=== PATIENT | female | born 1955 | race Caucasian/White ===

== ENCOUNTER 2019-09-26 12:23 | Emergency (ER) | payer MEDICARE, OTHER ==
--- NOTE | 2019-09-26 14:13 | ER Document Report ---
ED Medical Screen (RME) - General Chief Complaint: Back Pain Stated Complaint: BACK PAIN Time Seen by Provider: 09/26/19 14:08 Mode of Arrival: Wheelchair Information source: Patient Notes: 64-year-old female presents to ED for right flank pain intermittently for 3 weeks worse for the last 3 days. She states she does have a history of kidney stones many years ago. She states 2 weeks ago when she went to the primary care doctor there was some blood in her urine and they started to treat her for a UTI and then stopped the antibiotics because there was no bacteria in the urine. She states the pain is been coming and going since then but now it stops staying and the pain is much worse. Patient is alert oriented respirations regular nonlabored speaking in full sentences. I have greeted and performed a rapid initial assessment of this patient. A comprehensive ED assessment and evaluation of the patient, analysis of test results and completion of medical decision making process will be conducted by an additional ED providers. - Related Data Allergies/Adverse Reactions: codeine Allergy (Verified 09/26/19 14:04) sodium pentathol Allergy (Uncoded 09/26/19 14:04) Past Medical History - Social History Cigarette use (# per day): No Frequency of alcohol use: None Drug Abuse: None Lives with: Family Family history: Reviewed & Not Pertinent - Past Medical History Cardiac Medical History: Reports: Hx DVT, Hx Heart Attack, Hx Hypercholesterolemia, Hx Hypertension Pulmonary Medical History: Reports: None EENT Medical History: Reports: None Neurological Medical History: Reports: None Endocrine Medical History: Reports: Hx Diabetes Mellitus Type 2 Renal/ Medical History: Reports: Hx Kidney Stones Musculoskeltal Medical History: Reports Hx Arthritis, Reports Hx Musculoskeletal Deformity, Reports Hx Musculoskeletal Trauma Past Surgical History: Reports: Hx Breast Surgery - Breast tumors, Hx Cardiac Catheterization, Hx Orthopedic Surgery - Left knee back surgery - Immunizations Immunizations up to date: No Hx Diphtheria, Pertussis, Tetanus Vaccination: No Physical Exam - Vital signs Vitals: Temp Pulse Resp BP Pulse Ox 97.7 F 86 24 H 187/72 H 95 09/26/19 13:37 09/26/19 13:37 09/26/19 13:37 09/26/19 13:37 09/26/19 13:37 Course - Vital Signs Vital signs: Temp Pulse Resp BP Pulse Ox 97.7 F 86 24 H 187/72 H 95 09/26/19 13:37 09/26/19 13:37 09/26/19 13:37 09/26/19 13:37 09/26/19 13:37
[2019-09-26 15:25] LABS: APPEARANCE,URINE SLIGHTLY-CLOUDY; BILIRUBIN,URINE NEGATIVE (NEGATIVE); COLOR,URINE YELLOW; GLUCOSE, URINE >=500 mg/dL (NEGATIVE); KETONES,URINE TRACE mg/dL (NEGATIVE); PROTEIN,URINE 100 mg/dL (NEGATIVE); UROBILINOGEN,URINE NEGATIVE mg/dL (<2.0)
--- NOTE | 2019-09-26 15:33 | RADIOLOGY REPORT (SQ) ---
EXAM DESCRIPTION: CT ABD/PELVIS NO ORAL OR IV COMPLETED DATE/TIME: 09/26/2019 3:02 pm REASON FOR STUDY: Right flank pain COMPARISON: None. TECHNIQUE: CT scan of the abdomen and pelvis performed without intravenous or oral contrast. Images reviewed with lung, soft tissue, and bone windows. Reconstructed coronal and sagittal MPR images revi ewed. All images stored on PACS. All CT scanners at this facility use dose modulation, iterative reconstruction, and/or weight based d osing when appropriate to reduce radiation dose to as low as reasonably achievable (ALARA). [facility]: Dose Right [facility]: CareDose [facility]: Dose Right [facility]: Teradose 4D [facility]: Smart [employer] Interactive RADIATION DOSE: CT Rad equipment meets quality standard of care and radiation dose reduction techniq ues were employed. CTDIvol: 19.2 mGy. DLP: 1082 mGy-cm. LIMITATIONS: None. FINDINGS: LOWER CHEST: No acute findings. NON-CONTRASTED LIVER, SPLEEN, ADRENALS: Evaluation is limited due to the absence of intravenous contr ast. The diffuse low attenuation hepatic parenchyma is consistent with hepatic steatosis. The splee n is borderline enlarged and it measures 14 cm in AP diameter. There is no abnormality of the adrena l glands. PANCREAS: No acute gross abnormality of the pancreas. GALLBLADDER: Cholelithiasis without associated gallbladder wall thickening or pericholecystic fluid RIGHT KIDNEY AND URETER: Evaluation is limited due to the absence of intravenous contrast. There is mild hydronephrosis and hydroureter associated with asymmetric stranding of the perinephric and periu reteral fat. There is no obstructive ureteral or urinary bladder calculus. LEFT KIDNEY AND URETER: Evaluation is limited due to the absence of intravenous contrast. There is n o hydronephrosis, nephrolithiasis, hydroureter or ureterolithiasis. AORTA AND RETROPERITONEUM: No aneurysm of the abdominal aorta. No retroperitoneal adenopathy, hemorr nimco or mass. BOWEL AND PERITONEAL CAVITY: No bowel obstruction, bowel wall thickening or pericolonic/ perienteric inflammation. No mesenteric adenopathy, free intraperitoneal fluid or mesenteric/ omental inflammati on. APPENDIX: Unable to identify the appendix. PELVIS, BLADDER, AND ABDOMINAL WALL:No abnormality of the uterus or adnexa that is apparent on CT. T he urinary bladder is nondistended. There is a fat containing umbilical hernia. BONES: No acute findings. OTHER: No other finding. IMPRESSION: Mild right-sided hydronephrosis and hydroureter associated with asymmetric inflammatory stranding of the perinephric and periureteral fat. In the absence of an obstructive ureteral calculu s clinical correlation for recent passage of a calculus or an ascending urinary tract infection is re commended. COMMENT: Quality ID # [id number]: Final reports with documentation of one or more dose reduction techniques (e.g., Automated exposure control, adjustment of the mA and/or kV according to patient size, use of iterative reconstruction technique) TECHNICAL DOCUMENTATION: JOB ID: [id number] [employer]- All Rights Reserved Reading location - IP/workstation name: [email or web address]
[2019-09-26] MEDS ORDERED: KETOROLAC TROMETHAMINE 60 MG/2 ML SDV IM ONE (19:12)
--- NOTE | 2019-09-26 19:25 | ER Document Report ---
ED General - General Chief Complaint: Flank Pain Stated Complaint: BACK PAIN Time Seen by Provider: 09/26/19 14:08 Mode of Arrival: Wheelchair Notes: Patient is a 64-year-old white female with a past medical history of obesity, hypertension, CAD, diabetes who presents to the emergency department with a chief complaint of right-sided flank pain that began about 3 weeks ago. She states it was mild waxed and waned at first. She states over the past couple of days it worsened but yesterday was particularly worse. She states the pain was so severe it was like a colicky cramping pain in the right mid back. States the pain radiated around the right flank. Was associated with nausea and vomiting because the pain was so severe. She states during that time she was urinating quite frequently and believes that she passed a stone. She states the urine was painful at that time but the pain with urination has improved significantly however she still has a colicky cramping pain in the right flank and right back. Denies any gross blood in the urine. Denies any overt abdominal pain. Denies any fevers. Admits to a history of a ventral wall hernia but states this is unrelated. TRAVEL OUTSIDE OF THE [place] IN LAST 30 DAYS: No - Related Data Allergies/Adverse Reactions: codeine Allergy (Verified 09/26/19 14:04) sodium pentathol Allergy (Uncoded 09/26/19 14:04) Past Medical History - General Information source: Patient - Social History Smoking Status: Never Smoker Cigarette use (# per day): No Frequency of alcohol use: None Drug Abuse: None Lives with: Family Family History: None Patient has suicidal ideation: No Patient has homicidal ideation: No - Past Medical History Cardiac Medical History: Reports: Hx DVT, Hx Heart Attack, Hx Hypercholesterolemia, Hx Hypertension Pulmonary Medical History: Reports: None EENT Medical History: Reports: None Neurological Medical History: Reports: None Endocrine Medical History: Reports: Hx Diabetes Mellitus Type 2 Renal/ Medical History: Reports: Hx Kidney Stones Musculoskeletal Medical History: Reports Hx Arthritis, Reports Hx Musculoskeletal Deformity, Reports Hx Musculoskeletal Trauma Past Surgical History: Reports: Hx Breast Surgery - Breast tumors, Hx Cardiac Catheterization, Hx Orthopedic Surgery - Left knee back surgery - Immunizations Immunizations up to date: No Hx Diphtheria, Pertussis, Tetanus Vaccination: No Review of Systems - Review of Systems Gastrointestinal: Nausea, Vomiting Genitourinary: Dysuria, Flank pain -: Yes All other systems reviewed and negative Physical Exam - Vital signs Vitals: Temp Pulse Resp BP Pulse Ox 97.7 F 86 24 H 187/72 H 95 09/26/19 13:37 09/26/19 13:37 09/26/19 13:37 09/26/19 13:37 09/26/19 13:37 - General General appearance: Appears well, Alert In distress: None - Respiratory Respiratory status: No respiratory distress Chest status: Nontender Breath sounds: Normal Chest palpation: Normal - Cardiovascular Rhythm: Regular Heart sounds: Normal auscultation - Abdominal Inspection: Normal, Other - Prior lower ventral wall hernia Distension: No distension Bowel sounds: Normal Tenderness: Tender - Right flank - Back Back: CVA tenderness - Right-sided - Neurological Neuro grossly intact: Yes Cognition: Normal Orientation: AAOx4 [place] Coma Scale Eye Opening: Spontaneous [place] Coma Scale Verbal: Oriented Mehrdad Coma Scale Motor: Obeys Commands [place] Coma Scale Total: 15 Speech: Normal - Psychological Associated symptoms: Normal affect, Normal mood - Skin Skin Temperature: Warm Skin Moisture: Dry Skin Color: Normal Course - Re-evaluation Re-evalutation: 09/26/19 20:22 Patient resting comfortably in the room upon reevaluation at this time. She has had no further episodes of pain here. No urinary troubles here, nausea or vomiting here. States Toradol did help some. She declines any pain medications for home because she is responsible for her disabled and getting him around and she does not want to be disoriented in any way or drowsy. We discussed her elevated blood sugar, glucose in the urine trace ketones and minimal bump in CO2, discussed her risk for DKA, I do not feel she is in DKA at this time. She requested prescription for Actos 45 units every morning and Januvia 50 units nightly which she states she normally takes but is out of at the moment. She will monitor her blood sugar closely. She will can 10 you to rest and push clear fluids. Counseled her at length regarding the importance of outpatient follow-up and advised she return here or any ER immediately with any new, persistent or worsening symptoms. She verbalized understood and agreed. - Vital Signs Vital signs: Temp Pulse Resp BP Pulse Ox 98.4 F 81 18 183/85 H 92 09/26/19 19:43 09/26/19 19:43 09/26/19 19:43 09/26/19 19:43 09/26/19 19:43 - Laboratory Result Diagrams: 09/26/19 19:38 09/26/19 19:38 Laboratory results interpreted by me: 09/26/19 09/26/19 09/26/19 14:48 19:38 19:38 RDW 14.3 H Carbon Dioxide 32 H Glucose 199 H Urine Protein 100 H Urine Glucose (UA) >=500 H Urine Ketones TRACE H Urine Blood LARGE H Discharge - Discharge Clinical Impression: missed kidney stone, Flank pain Hydronephrosis Qualifiers: Hydronephrosis type: unspecified Qualified Code(s): N13.30 - Unspecified hydronephrosis Condition: Stable Disposition: HOME, SELF-CARE Instructions: Toradol Injection ([facility]), Flank Pain ([facility]) Additional Instructions: Please follow-up with your regular doctor in 2 to 3 days for reevaluation. Return here or any ER immediately with any new, persistent or worsening symptoms. Prescriptions: Sitagliptin Phosphate [Januvia 50 mg Tablet] 50 mg PO QHS #30 tablet Pioglitazone HCl [Actos] 45 mg PO QAM #30 tablet Referrals: JULIA RO MD [EMILIO DAO] - Follow up as needed
[2019-09-26 19:44] VITALS: BP 183/85
[2019-09-26 19:56] LABS: ABSOLUTE LYMPHOCYTES (AUTO) 2.2 10^3/uL (0.5-4.7); ABSOLUTE MONOCYTES (AUTO) 0.5 10^3/uL (0.1-1.4); ABSOLUTE NEUT (AUTO) 5.8 10^3/uL (1.7-8.2); BASOPHILS % (AUTO) 0.4 % (0-2); EOSINOPHILS % (AUTO) 0.5 % (0-6); LYMPHOCYTES % (AUTO) 25.6 % (13-45); MEAN CORPUSCULAR HEMOGLOBIN 29.2 pg (27.0-33.4); MEAN CORPUSCULAR HGB CONC 34.3 g/dL (32.0-36.0); MEAN CORPUSCULAR VOLUME 85 fl (80-97); MONOCYTES % (AUTO) 5.3 % (3-13); PLATELET COUNT 221 10^3/uL (150-450); RED BLOOD COUNT 4.46 10^6/uL (3.72-5.28); RED CELL DISTRIBUTION WIDTH 14.3 % (11.5-14.0); SEGMENTED NEUTROPHILS % (AUTO) 68.2 % (42-78); TOTAL CELLS COUNTED % (AUTO) 100 %; WHITE BLOOD COUNT 8.5 10^3/uL (4.0-10.5)
[2019-09-26 20:11] LABS: ANION GAP 8 (5-19); BLOOD UREA NITROGEN 14 mg/dL (7-20); CALCIUM 9.7 mg/dL (8.4-10.2); CARBON DIOXIDE 32 mmol/L (22-30); CHLORIDE 98 mmol/L (98-107); GLUCOSE 199 mg/dL (75-110); POTASSIUM 4.5 mmol/L (3.6-5.0)
== END 2019-09-26 20:34 | disposition home or self-care (01) ==
LOC: ER 12:23
DX: N13.2 Hydronephrosis with renal and ureteral calculous obstruction (principal); R11.2 Nausea with vomiting, unspecified; R10.9 Unspecified abdominal pain; E66.9 Obesity, unspecified; I25.10 Atherosclerotic heart disease of native coronary artery without angina pectoris; E11.9 Type 2 diabetes mellitus without complications; Z88.9 Allergy status to unspecified drugs, medicaments and biological substances
CPT/HCPCS: 36415; 85025; 80048; 81001; 74176; J1885